=== PATIENT | male | born 1985 | race Caucasian/White ===

== ENCOUNTER 2019-05-14 03:07 | Emergency (ER) | payer OTHER, MEDICAID, SELFPAY ==
[2019-05-14 03:21] VITALS: BP 130/73; PULSE 85; RESP 15; TEMP 36.9; O2SAT 95; BMI 43.5
--- NOTE | 2019-05-14 03:24 | ED.MALEGU ---
HPI - Male Genitourinary General Chief complaint: Urogenital-Male Stated complaint: Groin and Testicular Pain Time Seen by Provider: 05/14/19 03:13 Source: patient Mode of arrival: Ambulatory Limitations: no limitations History of Present Illness HPI Narrative: The patient is a 34-year-old male with history of bipolar anxiety presenting with left testicular pain. He says it started this morning as sort of a dull ache but has progressively gotten worse throughout the day. He feels like it is swollen he is not sure if it is. He denies any trauma to the area. He denies any history of STDs. He is currently sexually active with his . He denies any flank pain. No hematuria he does have some painful urination MD Complaint: testicle pain Onset (ago): hour(s) Duration: constant and progressively worsening Location: left testicle Related Data Previous Rx's Medication Instructions Recorded cephalexin [Keflex] 500 mg PO TID #21 cap 05/14/19 Allergies Allergy/AdvReac Type Severity Reaction Status Date / Time No Known Drug Allergies Allergy Verified 05/14/19 03:30 Review of Systems Review of Systems Narrative: GENERAL: Denies chills, fatigue, malaise, fever, sweats, travel HEENT: Denies sinus pain, ear pain, sore throat, difficulty swallowing, neck pain RESPIRATORY: Denies dyspnea, cough, wheezing, hemoptysis, sputum. CARDIOVASCULAR: Denies chest pain, palpitations, orthopnea, edema GASTROINTESTINAL: Denies nausea, vomiting, abdominal pain, diarrhea, constipation, melena. : See HPI MUSCULOSKELETAL: Denies weakness, joint pain, or bony pain SKIN: No rash, no erythema, no pruritus NEUROLOGIC: Denies weakness, dizziness, headache, numbness, change in speech, confusion PSYCHIATRIC: No concerning psychosocial issues. 12 point review of systems is negative except for those stated above and HPI Patient History Social History Smoking Status: Never smoker Exam Initial Vital Signs Initial Vital Signs: Vital Signs Temperature 98.5 F 05/14/19 03:21 Pulse Rate 85 05/14/19 03:21 Respiratory Rate 15 05/14/19 03:21 Blood Pressure 130/73 05/14/19 03:21 Pulse Oximetry 95 05/14/19 03:21 GENERAL: Overweight male and in no acute distress. HEENT: Head atraumatic,EOMI, pupils reactive, face symmetric, moist mucous membranes CARDIOVASCULAR: Regular rate and rhythm without murmurs, rubs or gallops. RESPIRATORY: Breath sounds equal bilaterally, no wheezes rales or rhonchi. ABDOMEN: Soft, nontender. Normoactive bowel sounds all 4 quadrants. No guarding or rebound. : CHRISTOPHER Alvarado at bedside as barrel tester and drainer left testicle is tender to touch no gross abnormality no appreciated hernia. Minimal swelling no erythema EXTREMITIES: Normal range of motion, no clubbing or edema. Neurovascularly intact NEUROLOGICAL: Alert and oriented x4.Normal gait and speech. SKIN: Warm, dry, no laceration, no petechiae, no rashes or lesions. Course Orders Ordered: ED Orders 05/14/19 03:20 UA Complete [Urinalysis and Microscopic] Stat Urine Culture Stat 05/14/19 03:51 US scrotum Stat Discontinued Medications Ketorolac Tromethamine (Toradol) 30 mg IM NOW ONE Stop: 05/14/19 03:52 Last Admin: 05/14/19 04:20 Dose: 30 mg Documented by: OLYA Vital Signs Vital signs: Vital Signs - 8 hr 05/14/19 03:21 05/14/19 05:23 Temperature 98.5 F Pulse Rate 85 87 Respiratory Rate 15 15 Blood Pressure 130/73 133/81 Pulse Oximetry 95 95 MDM - Male Genitourinary Lab Data Attestation: I reviewed the patient's lab results. Labs: Lab Results 05/14/19 Range/Units 03:20 Urine Color Yellow Urine Appearance Sl cloudy Urine pH 5.5 (4.5-8.0) Ur Specific [place] <=1.005 (1.000-1.035) Urine Protein Negative (Negative) Urine Glucose (UA) 2+ H (Negative) g/dL Urine Ketones 1+ H (NEGATIVE) Urine Occult Blood 1+ H (Negative) Urine Nitrate Negative (Negative) Urine Bilirubin Negative (NEGATIVE) Urine Urobilinogen 0.2 (0.2) E.U./dL Ur Leukocyte Esterase Negative (NEGATIVE) Urine RBC 10-30/hpf H (0-5/HPF) Urine WBC 30-100/hpf H (0-5/HPF) Urine Bacteria Few (2-10) H (None) Urine Sperm Rare Ur Culture Indicated? Specimen cultured Imaging Data Scrotal ultrasound: Radiologist's impression: Preliminary report: Possible small fat containing left inguinal hernia. No testicular abnormality identified. MDM Narrative Medical decision making narrative: Pain is better after Toradol. Possible small fat hernia. However nothing appreciable on exam. Told patient he may require elective surgery. Discharge Plan Departure Patient Disposition: Home Clinical Impression: Left inguinal hernia Urinary tract infection Qualifiers: Urinary tract infection type: acute cystitis Hematuria presence: without hematuria Qualified Code(s): N30.00 - Acute cystitis without hematuria Discharge Date/Time: 05/14/19 05:25 Instructions: DI for Groin Hernia, DI for Urinary Tract Infection (UTI) Activity Restrictions/Additional Instructions: *You have been diagnosed with left testicular pain, UTI *What to do: At this time ultrasound is reassuring possible hernia. *Continue to take medications as directed Keflex 500 mg 3 times a day for 7 days Motrin 800 mg every 8 hours if needed for pain *Follow up with your primary care provider in 2-3 days *Return to ER if you should have increasing testicular pain, increasing swelling, fevers, chills, inability urine or any new, worsening or concerning symptoms Prescriptions: New cephalexin [Keflex] 500 mg capsule 500 mg PO TID Qty: 21 RF: 0
--- NOTE | 2019-05-14 03:51 | DI.US.S_ITS ---
PROCEDURE: US SCROTUM INDICATIONS: LEFT TESTICULAR PAIN TECHNIQUE: Real-time scanning was performed of the scrotum and testicles, with image documentation. Color and pulse Doppler interrogation was performed of both testicles. COMPARISON: [facility], US, US HERNIA INGUINAL, 02/24/2017, 11:46. [facility], CT, CT PELVIS W CON, 03/12/2017, 12:18. FINDINGS: Right: Testicle is normal in size at 4.4 x 2.2 x 2.8 cm, and homogenous in echotexture. Epididymis is normal in overall size and morphology. No varicoceles. Trace hydrocele. Overlying scrotal skin is normal in thickness. There is a 5 x 3 x 1 mm hyperechoic structure in the inferior scrotum adjacent to the tunica albaginea. Left: Testicle is normal in size at 4.1 x 2.6 x 2.9 cm, and homogeneous in echotexture. Epididymis is normal in overall size and morphology. No hydrocele or varicoceles. Overlying scrotal skin is normal in thickness. Possible small fat containing left inguinal hernia. Doppler: Color and pulse Doppler demonstrate normal and symmetric arterial flow in both testicles. IMPRESSION: 1. Possible small fat containing left inguinal hernia. 2. No evidence for testicular torsion or epididymitis. 3. A 5 x 3 x 1 mm hyperechoic structure in the inferior right scrotum adjacent to the tunica albaginea, probably dystrophic ossification. There is trace right hydrocele. Dictated by: Rian Gilmore M.D. on 05/14/2019 at 8:41 Approved by: Rian Gilmore M.D. on 05/14/2019 at 8:51
[2019-05-14 03:56] LABS: Appearance Urine UA SL CLOUDY; Bilirubin Urine UA NEGATIVE (NEGATIVE); Color Urine UA YELLOW; Glucose Urine UA 2+ g/dL (Negative); Ketones Urine UA 1+ (NEGATIVE); Leukocyte Esterase Urine UA NEGATIVE (NEGATIVE); Nitrite Urine UA NEGATIVE (Negative); Occult Blood Urine UA 1+ (Negative); Protein Urine UA NEGATIVE (Negative); Specific Gravity Urine UA <=1.005 (1.000-1.035); Urobilinogen Urine UA 0.2 E.U./dL (0.2); pH Urine UA 5.5 (4.5-8.0)
[2019-05-14 03:57] LABS: RBC Urine 10-30/HPF (0-5/HPF)
[2019-05-14 03:58] LABS: Bacteria Urine Few (2-10); WBC Urine 30-100/HPF (0-5/HPF)
[2019-05-14 04:01] LABS: Culture Indicated Urine Specimen Cultured; Sperm Urine RARE
[2019-05-14] MEDS: KETOROLAC 60 MG/2 ML VIAL 30 MG IM (04:20)
[2019-05-14 05:23] VITALS: BP 133/81; PULSE 87; RESP 15; O2SAT 95
== END 2019-05-14 05:25 | disposition home or self-care (01) ==
PROVIDERS: Emergency Provider Emergency Medicine
DX: K40.90 Unilateral inguinal hernia, without obstruction or gangrene, not specified as recurrent (principal); N30.00 Acute cystitis without hematuria
CPT/HCPCS: 76870; 81001; 87086; 96372; 99282; 99283; J1885

== ENCOUNTER 2019-05-16 21:25 | Emergency (ER) | payer OTHER, MEDICAID, SELFPAY ==
[2019-05-16 21:31] VITALS: BP 127/77; PULSE 104; RESP 20; TEMP 36.4; O2SAT 96
--- NOTE | 2019-05-16 21:37 | ED_ITS ---
HPI - Abdominal Pain General Chief Complaint: Abdominal Pain Stated Complaint: states left inguinial hernia Time Seen by Provider: 05/16/19 21:32 Source: patient Mode of arrival: Ambulatory Limitations: no limitations History of Present Illness HPI narrative: This is a 34-year-old male comes the emergency department with complaint of increasing swelling and pain of the left testicle patient was seen on the . Was noted to possibly have any UTI and started on antibiotics. He had some frequency and dysuria. Patient states that that has improved but he has had increasing swelling of the left testicle. Patient states becoming quite tender. Has some redness. He states he was told he had inguinal hernia on the left on the and if he had increasing swelling or other changes he should return. Patient denies any fevers, he denies any nausea or vomiting, he denies any abdominal pain, he denies any issues with bowel movements and states he has been having regular normal bowel movements. He states that the dysuria urgency has resolved. Related Data Previous Rx's Medication Instructions Recorded cephalexin [Keflex] 500 mg PO TID #21 cap 05/14/19 doxycycline hyclate 100 mg PO BID #20 tab 05/16/19 Allergies Allergy/AdvReac Type Severity Reaction Status Date / Time No Known Drug Allergies Allergy Verified 05/14/19 03:30 Review of Systems Review of Systems ROS Unobtainable: All systems reviewed & are unremarkable except as noted in HPI and below Constitutional Constitutional: Denies chills, Denies fever(s), Denies lethargy and Denies weakness Gastrointestinal Gastrointestinal: Denies abdominal pain, Denies change in bowel habits, Denies d iarrhea, Denies nausea and Denies vomiting Genitourinary Genitourinary: Denies hematuria, Denies difficulty urinating, Denies genital lesions, Reports genital pain (left sided.), Denies dysuria (resolved.), Denies flank pain, Reports scrotal swelling (left sided.), Denies testicular mass, Reports testicular pain (left sided.), Denies urinary frequency (resolved), Denies urinary hesitancy, Denies urinary incontinence and Denies urinary urgency Neurologic Neurologic: Denies weakness Patient History Social History Smoking Status: Never smoker Substance Use Type: does not use Exam Narrative Exam Narrative: GENERAL: Alert and oriented x three, obese male in mild distress. HEENT: Head normocephalic, atraumatic, EOMI, pupils reactive, face symmetric, moist mucous membranes NECK: Supple, full range of motion CARDIOVASCULAR: Regular rate and rhythm without murmurs, rubs or gallops. RESPIRATORY: Breath sounds equal bilaterally, no wheezes rales or rhonchi. ABDOMEN: Soft, nontender. Normoactive bowel sounds all 4 quadrants. No guarding or rebound, rigidity, no mass : No CVA tenderness. Male: normal external examination, no penile discharge or lesions, right testicle is non-tender, left testicle is tender, cremasteric reflex intact, no inguinal hernias appreciated. No crepitus. EXTREMITIES: Normal range of motion, no clubbing or edema. Neurovascularly intact NEUROLOGICAL: Cranial nerves II through XII grossly intact. Moving all extremi ties SKIN: Warm, dry, no petechiae, no rashes or lesions. Initial Vital Signs Initial Vital Signs: Vital Signs Temperature 97.5 F L 05/16/19 21:31 Pulse Rate 104 H 05/16/19 21:31 Respiratory Rate 20 05/16/19 21:31 Blood Pressure 127/77 05/16/19 21:31 Pulse Oximetry 96 05/16/19 21:31 Course Orders Ordered: ED Orders 05/16/19 21:43 US scrotum Stat 05/16/19 22:20 Complete Blood Count AUTO DIFF Stat Comprehensive Metabolic Panel Stat Lipase Stat 05/16/19 22:53 Urinalysis and Microscopic Stat Urine Chlamydia Gonorrhea PCR Stat Urine Culture Stat Discontinued Medications Hydrocodone Bitart/Acetaminophen (Vicodin Prepack) 1 bottle MISC SEEINSTR ONE Stop: 05/16/19 23:29 Last Admin: 05/16/19 23:40 Dose: 1 bottle Documented by: ELISABETH Ceftriaxone Sodium (Rocephin) 250 mg IM NOW ONE Stop: 05/16/19 23:21 Last Admin: 05/17/19 00:07 Dose: 250 mg Documented by: PHILIP Doxycycline Hyclate (Vibramycin) 100 mg PO NOW ONE Stop: 05/16/19 23:29 Last Admin: 05/16/19 23:40 Dose: 100 mg Documented by: ELISABETH Ketorolac Tromethamine (Toradol) 30 mg IV NOW ONE Stop: 05/16/19 21:44 Last Admin: 05/16/19 22:41 Dose: 30 mg Documented by: PHILIP Vital Signs Vital signs: Vital Signs - 8 hr 05/16/19 21:31 05/17/19 00:25 Temperature 97.5 F L Pulse Rate 104 H 77 Respiratory Rate 20 18 Blood Pressure 127/77 118/71 Pulse Oximetry 96 99 MDM - Abdominal Pain Lab Data Attestation: I reviewed the patient's lab results. Result diagrams: 05/16/19 22:20 05/16/19 22:20 Labs: Lab Results 05/16/19 05/16/19 05/16/19 Range/Units 22:20 22:20 22:53 WBC 12.3 H (4.5-11.0) X10^3/uL RBC 5.24 (4.5-5.9) X10^6/uL Hgb 14.6 (13.5-17.5) g/dL Hct 42.7 (41-53) % MCV 81.4 (80-100) fL MCH 27.8 (26-34) PG MCHC 34.2 (30-36) % RDW 14.2 (11.6-14.8) % Plt Count 296 (150-400) X10^3/uL Neut % (Auto) 67.8 (50-75) % Lymph % (Auto) 19.5 L (25-40) % [place] % (Auto) 9.7 (3-14) % Eos % (Auto) 2.1 (2-4) % Baso % (Auto) 0.9 (0-2) % Neut # (Auto) 8400 H (3937-7786) /uL Lymph # (Auto) 2400 (7093-1363) /uL [place] # (Auto) 1200 H (0-900) /uL Eos # (Auto) 300 (0-450) /uL Baso # (Auto) 100 (0-100) /uL Sodium 137 (137-145) mmol/L Potassium 4.0 (3.4-5.1) mmol/L Chloride 101 (98-107) mmol/L Carbon Dioxide 29 (22-32) mmol/L BUN 16 (9-20) mg/dL Creatinine 0.80 (0.66-1.25) mg/dL Estimated GFR > 60.0 (>60) mL/min BUN/Creatinine Ratio 20.0 (6-22) Glucose 197 H (70-100) mg/dL Calcium 9.3 (8.4-10.2) mg/dL Total Bilirubin 0.6 (0.2-1.3) mg/dL AST 22 (17-59) IU/L ALT 24 (<50) IU/L Alkaline Phosphatase 49 (38-126) U/L Total Protein 7.3 (6.3-8.2) g/dL Albumin 4.3 (3.5-5.0) g/dL Globulin 3.0 (1.7-4.1) g/dL Albumin/Globulin Ratio 1.4 (1.0-2.8) Lipase 70 (23-300) U/L Urine Color Yellow Urine Appearance Sl cloudy Urine pH 5.0 (4.5-8.0) Ur Specific [place] <=1.005 (1.000-1.035) Urine Protein Negative (Negative) Urine Glucose (UA) 2+ H (Negative) g/dL Urine Ketones 1+ H (NEGATIVE) Urine Occult Blood 2+ H (Negative) Urine Nitrate Negative (Negative) Urine Bilirubin Negative (NEGATIVE) Urine Urobilinogen 0.2 (0.2) E.U./dL Ur Leukocyte Esterase 1+ H (NEGATIVE) Urine RBC 0-1/hpf D (0-5/HPF) Urine WBC 30-100/hpf H (0-5/HPF) Ur Squamous Epith Cells 0-1 /hpf (0-5/HPF) Urine Bacteria Moderate (10-30) H (None) Ur Culture Indicated? Specimen cultured Ur Chlamydia DNA (PCR) N gonorrhoeae DNA (PCR) 05/16/19 Range/Units 22:53 WBC (4.5-11.0) X10^3/uL RBC (4.5-5.9) X10^6/uL Hgb (13.5-17.5) g/dL Hct (41-53) % MCV (80-100) fL MCH (26-34) PG MCHC (30-36) % RDW (11.6-14.8) % Plt Count (150-400) X10^3/uL Neut % (Auto) (50-75) % Lymph % (Auto) (25-40) % Stephen[place] % (Auto) (3-14) % Eos % (Auto) (2-4) % Baso % (Auto) (0-2) % Neut # (Auto) (4133-0537) /uL Lymph # (Auto) (0540-4698) /uL [place] # (Auto) (0-900) /uL Eos # (Auto) (0-450) /uL Baso # (Auto) (0-100) /uL Sodium (137-145) mmol/L Potassium (3.4-5.1) mmol/L Chloride (98-107) mmol/L Carbon Dioxide (22-32) mmol/L BUN (9-20) mg/dL Creatinine (0.66-1.25) mg/dL Estimated GFR (>60) mL/min BUN/Creatinine Ratio (6-22) Glucose (70-100) mg/dL Calcium (8.4-10.2) mg/dL Total Bilirubin (0.2-1.3) mg/dL AST (17-59) IU/L ALT (<50) IU/L Alkaline Phosphatase (38-126) U/L Total Protein (6.3-8.2) g/dL Albumin (3.5-5.0) g/dL Globulin (1.7-4.1) g/dL Albumin/Globulin Ratio (1.0-2.8) Lipase (23-300) U/L Urine Color Urine Appearance Urine pH (4.5-8.0) Ur Specific [place] (1.000-1.035) Urine Protein (Negative) Urine Glucose (UA) (Negative) g/dL Urine Ketones (NEGATIVE) Urine Occult Blood (Negative) Urine Nitrate (Negative) Urine Bilirubin (NEGATIVE) Urine Urobilinogen (0.2) E.U./dL Ur Leukocyte Esterase (NEGATIVE) Urine RBC (0-5/HPF) Urine WBC (0-5/HPF) Ur Squamous Epith Cells (0-5/HPF) Urine Bacteria (None) Ur Culture Indicated? Ur Chlamydia DNA (PCR) Not detected N gonorrhoeae DNA (PCR) Not detected Imaging Data scrotal US: Radiologist's impression: A heterogeneous thickening of left inferior scrotal wall. Left abdomen S is enlarged, heterogeneous and hyperemic. Findings are worrisome for an inflammatory infectious process. There are 1-2 cm lymph nodes noted in the left groin, possibly reactive. physical exam correlation will be needed to ensure no developing Zaid's gangrene. Small bilateral hydroceles left larger than right. [facility] Narrative Medical decision making narrative: Patient imaging visualized from 05/14 patient had a small inguinal hernia. No evidence of torsion or epididymitis. He had a very small hypoechoic structure in the inferior right spoke that was possibly dystrophic calcification and a trace right hydrocele but no other changes to the left testicle. Patient was discharged home on Keflex and his frequency and dysuria is improved but he is having increasing swelling. On ultrasound it appears that he has an epididymitis and there is no bowel noted from his inguinal hernia and they were not unable to visualize the small fat containing hernia. Discussed with patient he was prescribed Keflex but I think he would benefit from alteration of his antibiotics. Urine sample was sent and cultured. Prelim culture from the was negative. urine GC was negative. Patient is feeling better after Toradol, given Rocephin IM and changed to doxycycline. US report mentions cannot exclude Zaid's, patient exam, level of pain and symptoms seem appropriately consistent with epididymitis, patient symptoms have not rapidly progressed while he was here in the department he is actually feeling much better. He does have a history of diabetes but states his sugars are typically in the 200 range which is approximately where he is today without any other major lab abnormalities. White count is 12.3, chemistries otherwise normal with a CO2 in normal range which would make an acidosis much less likely. Discharge Plan Departure Patient Disposition: Home Clinical Impression: Epididymitis Discharge Date/Time: 05/17/19 00:30 Instructions: DI for Epididymitis Activity Restrictions/Additional Instructions: Follow-up with primary care in the next week and/or Urology. Stop the Keflex. Take the your newly prescribed antibiotics daily until gone. May take ibuprofen up to 800 mg every 8 hours as needed for pain. you may also take narcotic pain medication with this. This medication can make you sleepy do not drive, perform hazardous activities or make any major decisions while taking it. Return to the emergency department for fevers greater 100.4 F rapidly worsening swelling, persistent vomiting, no abdominal or flank pain, inability to urinate, urinating blood, passing out or other new or concerning symptoms Prescriptions: New doxycycline hyclate 100 mg tablet 100 mg PO BID Qty: 20 RF: 0 No Action cephalexin [Keflex] 500 mg capsule 500 mg PO TID Qty: 21 RF: 0 Referrals: Chinmay Santiago MD [Physician] -
--- NOTE | 2019-05-16 21:43 | DI.US.S_ITS ---
PROCEDURE: US SCROTUM INDICATIONS: Left scrotal swelling, increasing pain, had US 05/14. TECHNIQUE: Real-time scanning was performed of the scrotum and testicles, with image documentation. Color and pulse Doppler interrogation was performed of both testicles. COMPARISON: None. FINDINGS: Right: Testicle is normal in size at 4.5 x 2.8 x 2.7 cm, and homogenous in echotexture. Epididymis is normal in overall size and morphology. Small hydrocele. No varicoceles. Overlying scrotal skin is normal in thickness. Left: Testicle is normal in size at 4.0 x 2.6 x 3.5 cm, and homogeneous in echotexture. Epididymis is enlarged with heterogeneous echotexture and hyperemia. There is left scrotal swelling. Small hydrocele. No varicoceles. Overlying scrotal skin is normal in thickness. Doppler: Color and pulse Doppler demonstrate normal and symmetric arterial flow in both testicles. IMPRESSION: 1. Enlarged, hyperemic left epididymis likely related to infectious/inflammatory process. 2. Left scrotal swelling which could be reactive, however correlation with clinical findings is recommended to exclude infectious cellulitis. 3. Enlarged left inguinal lymph nodes likely reactive. 4. No sonographic evidence of testicular torsion. Please note ultrasound cannot exclude intermittent torsion. 5. Bilateral hydroceles. Final interpretation is concordant with preliminary interpretation. Dictated by: Yazmin Francois MD, PhD on 05/17/2019 at 7:56 Approved by: Yazmin Francois MD, PhD on 05/17/2019 at 8:01
[2019-05-16 22:29] LABS: Add Manual Diff / Slide Review NO; Basophils Absolute Auto 100 /uL (0-100); Basophils Percent Auto 0.9 % (0-2); Eosinophils Absolute Auto 300 /uL (0-450); Eosinophils Percent Auto 2.1 % (2-4); Hematocrit 42.7 % (41-53); Hemoglobin 14.6 g/dL (13.5-17.5); Lymphocytes Absolute Auto 2400 /uL (1100-4500); Lymphocytes Percent Auto 19.5 % (25-40); Mean Corpuscular HGB Conc 34.2 % (30-36); Mean Corpuscular Hemoglobin 27.8 PG (26-34); Mean Corpuscular Volume 81.4 fL (80-100); Monocytes Absolute Auto 1200 /uL (0-900); Monocytes Percent Auto 9.7 % (3-14); Neutrophils Absolute Auto 8400 /uL (1500-7000); Neutrophils Percent Auto 67.8 % (50-75); Platelet Count 296 X10^3/uL (150-400); Red Blood Cell Count 5.24 X10^6/uL (4.5-5.9); Red Cell Distribution Width 14.2 % (11.6-14.8); White Blood Cell Count 12.3 X10^3/uL (4.5-11.0)
[2019-05-16 22:38] LABS: Alanine Aminotransferase 24 IU/L (<50); Albumin 4.3 g/dL (3.5-5.0); Albumin Globulin Ratio 1.4 (1.0-2.8); Alkaline Phosphatase 49 U/L (38-126); Aspartate Aminotransferase 22 IU/L (17-59); Bilirubin Total 0.6 mg/dL (0.2-1.3); Blood Urea Nitrogen 16 mg/dL (9-20); Calcium 9.3 mg/dL (8.4-10.2); Carbon Dioxide 29 mmol/L (22-32); Chloride 101 mmol/L (98-107); Estimated Glomerular Filt Rate > 60.0 mL/min (>60); Glucose 197 mg/dL (70-100); HEMOLYSIS 15 (0-50); Lipase 70 U/L (23-300); Sodium 137 mmol/L (137-145); Total Protein 7.3 g/dL (6.3-8.2)
[2019-05-16] MEDS: KETOROLAC 60 MG/2 ML VIAL 30 MG IV (22:41)
[2019-05-16 23:27] LABS: Bilirubin Urine UA NEGATIVE (NEGATIVE); Color Urine UA YELLOW; Glucose Urine UA 2+ g/dL (Negative); Ketones Urine UA 1+ (NEGATIVE); Leukocyte Esterase Urine UA 1+ (NEGATIVE); Nitrite Urine UA NEGATIVE (Negative); Occult Blood Urine UA 2+ (Negative); Protein Urine UA NEGATIVE (Negative); Specific Gravity Urine UA <=1.005 (1.000-1.035); Urobilinogen Urine UA 0.2 E.U./dL (0.2)
[2019-05-16 23:30] LABS: Appearance Urine UA SL CLOUDY
[2019-05-16 23:36] LABS: Bacteria Urine Moderate (10-30); Culture Indicated Urine Specimen Cultured; RBC Urine 0-1/HPF (0-5/HPF); Squamous Epithelial Cell Urine 0-1 /HPF (0-5/HPF); WBC Urine 30-100/HPF (0-5/HPF)
[2019-05-16] MEDS: DOXYCYCLINE HYCLATE 100 MG TABLET PO (23:40)
[2019-05-16] MEDS: HYDROCODONE/ACET 5/325 PREPACK 1 BOTTLE MISC (23:40)
[2019-05-17] MEDS: cefTRIAXone 500 MG VIAL 250 MG IM (00:07)
[2019-05-17 00:25] VITALS: BP 118/71; PULSE 77; RESP 18; O2SAT 99
[2019-05-17 01:02] LABS: Urine N gonorrhoeae NOT DETECTED
[2019-05-17 01:04] LABS: Urine Chlamydia NOT DETECTED
== END 2019-05-17 00:30 | disposition home or self-care (01) ==
PROVIDERS: Emergency Provider Emergency Medicine
DX: N45.1 Epididymitis (principal); E11.9 Type 2 diabetes mellitus without complications; R79.89 Other specified abnormal findings of blood chemistry
CPT/HCPCS: 36415; 76870; 80053; 81001; 83690; 85025; 87086; 87491; 87591; 96372; 96374; 99282; 99284; J0696; J1885

== ENCOUNTER → 2019-12-13 09:29 | Outpatient (CLI) | payer OTHER, MEDICAID, SELFPAY ==
[2019-12-14 01:46] LABS: COVID19 Sendout Not Detected (Not Detect)
== END ==
PROVIDERS: Visit Provider Physician Assistant
DX: Z01.812 Encounter for preprocedural laboratory examination (principal)
CPT/HCPCS: 87635

== ENCOUNTER 2020-06-07 01:21 | Emergency (ER) | payer OTHER, MEDICAID, SELFPAY ==
[2020-06-07 01:25] VITALS: BP 139/78; PULSE 72; RESP 18; TEMP 36.4; O2SAT 96
[2020-06-07 01:30] VITALS: PULSE 74; O2SAT 96
--- NOTE | 2020-06-07 01:58 | ED_ITS ---
HPI - Extremity Problem General Chief complaint: Extremity Problem,Nontraumatic Stated complaint: Bad swollen toe x3 days Time Seen by Provider: 06/07/20 01:25 Source: patient Mode of arrival: Ambulatory Limitations: no limitations History of Present Illness HPI Narrative: 35-year-old male nonsmoker with history of diabetes presents with a chief complaint of a painful swollen and red right great toe over the past 3-4 days. He has had episodes of ingrown toenail before but never this red, swollen and painful. He denies systemic symptoms such as fever, chills nausea or vomiting. He denies any injury or new shoes. MD Complaint: extremity pain and extremity swelling Onset (ago): day(s) Pain Consistency: constant Location: right and toe Quality: burning and stabbing Radiation: none Relieving factors: rest Exacerbating factors: range of motion, weight bearing and palpation Associated symptoms: denies other symptoms Related Data Home Medications Medication Instructions Recorded Confirmed buspirone 10 mg tablet 10 mg PO BID 08/31/19 08/31/19 citalopram 20 mg tablet 20 mg PO DAILY 08/31/19 08/31/19 divalproex 500 mg tablet,extended 1,000 mg PO DAILY 08/31/19 08/31/19 release 24 hr doxepin 10 mg capsule 10 mg PO BID 08/31/19 08/31/19 eluxadoline 100 mg tablet 100 mg PO BID 08/31/19 08/31/19 empagliflozin 10 mg tablet 10 mg PO DAILY 08/31/19 08/31/19 metformin 1,000 mg tablet 1,000 mg PO BID 08/31/19 08/31/19 prazosin 2 mg capsule 2 mg PO BID 08/31/19 08/31/19 propranolol 40 mg tablet 20 mg PO BID 08/31/19 08/31/19 Previous Rx's Medication Instructions Recorded mupirocin 1 applic TOPICAL BID 7 Days g 06/07/20 Allergies Allergy/AdvReac Type Severity Reaction Status Date / Time metformin Allergy Verified 06/07/20 01:54 Review of Systems Constitutional Constitutional: Denies chills, Denies fatigue, Denies fever(s), Denies frequent falls, Denies lethargy and Denies weakness Eyes Eyes: Denies change in vision, Denies eye discharge, Denies irritation and Denies loss of vision ENT Ears, Nose, Mouth, and Throat: Denies change in voice, Denies dizziness, Denies neck pain, Denies sore throat and Denies throat swelling Cardiovascular Cardiovascular: Denies chest pain, Denies irregular heart rhythm, Denies lightheadedness, Denies palpitations, Denies dyspnea, Denies dyspnea on exertion and Denies orthopnea Respiratory Respiratory: Denies cough, Denies dyspnea, Denies dyspnea on exertion and Denies wheezing Gastrointestinal Gastrointestinal: Denies abdominal pain, Denies change in bowel habits, Denies diarrhea, Denies nausea and Denies vomiting Musculoskeletal Musculoskeletal: Denies neck pain and Denies numbness Integumentary/Breasts Skin/Breast: Denies pruritus, Reports erythema, Denies rash, Reports skin pain, Reports skin swelling and Denies wounds Neurologic Neurologic: Denies behavioral changes, Denies confusion, Denies dizziness, Denies frequent falls, Denies loss of vision, Denies numbness and Denies weakness Psychiatric Psychiatric: Denies anxiety, Denies behavioral changes, Denies confusion, Denies depression, Denies homicidal ideation and Denies suicidal ideation Endocrine Endocrine: Denies fatigue, Denies flushing and Denies palpitations Hematologic/Lymphatic Hematologic/Lymphatic: Denies easy bruising Allergic/Immunologic Allergic/Immunologic: Denies urticaria, Denies throat swelling and Denies wheezi ng Patient History Family History Family/Other Loud snoring Insomnia Restless leg syndrome Obesity Hypertension Heart disease Depression Anxiety Alcohol abuse Substance abuse Father Loud snoring Hypertension Depression Anxiety Mother Loud snoring Sleep apnea Restless leg syndrome Obesity Hypertension Diabetes mellitus Heart disease Depression Anxiety Social History Smoking Status: Never smoker Smoking Status: Never smoker Substance Use Type: marijuana Exam Narrative Exam Narrative: GEN: AOx3 and in mild distress EYES: Pupils are equal, round, and reactive to light and accommodation. Extraoccular muscles are intact bilaterally. There is no subconjunctival hemorrhage or exudate. CHEST: Lungs are clear to auscultation bilaterally and free of wheezes, rales, or rhonchi. Heart rate is regular rhythm, there are no murmurs, clicks, rubs, or gallops. There is no chest wall tenderness. ABD: Abdomen is soft and nontender. There is no guarding or rebound. Bowel sounds are normal in all 4 quadrants. There is no mass or organomegaly. EXT: Ingrown toenail of right great toe on medial edge with very minimal drainage and some surrounding erythema. No fluctuance or induration, no drainage to suggest abscess. Full painless ROM of all extremities with no loss of sensation or strength. SKIN: Warm, pink, and dry. No erythema or rash Initial Vital Signs Initial Vital Signs: Vital Signs Temperature 97.6 F 06/07/20 01:25 Pulse Rate 72 06/07/20 01:25 Respiratory Rate 18 06/07/20 01:25 Blood Pressure 139/78 06/07/20 01:25 Pulse Oximetry 96 06/07/20 01:25 Procedures Nerve Block Nerve Block 1: Time out performed: Yes Local Anesthetic: bupivacaine 0.5% Amount of anesthesia used (mL): 3 Side: left Nerve Blocks: digital Procedure Successful: Yes Patient Tolerated Procedure: Well Complications: none Additional Comments: ingrown nail trimmed. NO abscess or drainage noted. Course Orders Ordered: Discontinued Medications Bupivacaine HCl (Bupivacaine 0.5% (Pf) Vial) 5 ml SUBCUT NOW ONE Stop: 06/07/20 01:58 Last Admin: 06/07/20 02:37 Dose: Not Given Documented by: LELO Mupirocin (Mupirocin 22 Gm Oint) 1 applic TOP BID HERMINIA Last Admin: 06/07/20 02:36 Dose: Not Given Documented by: LELO Vital Signs Vital signs: Vital Signs - 8 hr 06/07/20 01:25 06/07/20 01:30 Temperature 97.6 F Pulse Rate 72 74 Respiratory Rate 18 Blood Pressure 139/78 Pulse Oximetry 96 96 Discharge Plan Departure Patient Disposition: Home Clinical Impression: Ingrowing left great toenail Instructions: DI for Infected Ingrown Toenail Activity Restrictions/Additional Instructions: *You have been diagnosed with [infected ingrown toenail] *What to do: *Take medications as directed, a prescription for a topical antibiotic ointment has been given. Also please soak your foot in warm water with epsom salts a few times daily. *Follow up with your primary care provider in 2-3 days, call for an appointment. Let them know you were seen in the Emergency Department and that we ask that you be seen in follow up *Return to ER if you should have any new, worsening or concerning symptoms Prescriptions: New mupirocin 2 % ointment 1 applic topical BID 7 Days RF: 0 No Action propranolol 40 mg tablet 20 mg PO BID RF: 0 metformin 1,000 mg tablet 1,000 mg PO BID RF: 0 Viberzi 100 mg tablet 100 mg PO BID RF: 0 buspirone 10 mg tablet 10 mg PO BID RF: 0 prazosin 2 mg capsule 2 mg PO BID RF: 0 Jardiance 10 mg tablet 10 mg PO DAILY RF: 0 citalopram 20 mg tablet 20 mg PO DAILY RF: 0 divalproex 500 mg tablet extended release 24 hr 1,000 mg PO DAILY RF: 0 doxepin 10 mg capsule 10 mg PO BID RF: 0 Referrals: Radha Jamison DPM [Physician] - Martha Azul MD [Primary Care Provider] -
[2020-06-07] MEDS: BUPIVACAINE 0.5% W/ EPI (PF) 30 ML VIAL (02:35)
== END 2020-06-07 02:35 | disposition home or self-care (01) ==
PROVIDERS: Emergency Provider Emergency Medicine; PCP Family Medicine
DX: L60.0 Ingrowing nail (principal); E11.9 Type 2 diabetes mellitus without complications
CPT/HCPCS: 64450; 99281; 99283